=== PATIENT | male | born 1950 | race African-American/Black ===

== ENCOUNTER 2021-11-28 07:15 | Emergency (ER) | payer MEDICARE, OTHER ==
[2021-11-28 08:36] LABS: ALT (SGPT) 24 U/L (8-55); AST (SGOT) 28 U/L (5-34); Albumin 3.1 g/dL (3.4-4.8); Alkaline Phosphatase 90 U/L (40-110); Anion Gap 15 mmol/L (10-20); BUN (Urea Nitrogen) 35 mg/dL (8.4-25.7); Bilirubin, Total 0.5 mg/dL (0.2-1.2); Calc. Creatinine Clearance 0 mL/min (70-130); Calcium 8.9 mg/dL (7.8-10.44); Carbon Dioxide 25 mmol/L (23-31); Chloride 102 mmol/L (98-107); Glucose 159 mg/dL (83-110); Lipase 93 U/L (8-78); Magnesium 2.6 mg/dL (1.6-2.6); Potassium 5.3 mmol/L (3.5-5.1); Protein, Total 7.1 g/dL (5.8-8.1); Sodium 137 mmol/L (136-145)
[2021-11-28 08:57] LABS: #Eosinphils 1.3 10x3/uL (0.0-0.5); #Monocytes 0.9 10x3/uL (0.0-1.1); #Neutrophils 3.7 10x3/uL (1.5-8.4); %Basophils 0.6 % (0.0-2.0); %Eosinophils 18.2 % (0.0-6.0); %Lymphocytes 16.4 % (18.0-47.0); %Monocytes 13.2 % (0.0-10.0); %Neutrophils 51.2 % (40.0-75.0); Hemoglobin 7.8 g/dL (13.5-17.5); Mean Corpuscular HGB CONC 31.8 g/dL (32.0-36.0); Mean Corpuscular Hemoglobin 32.2 pg (27.0-33.0); Mean Corpuscular Volume 101.2 fl (81.2-95.1); Mean Platelet Volume 10.1 fl (7.4-10.4); Platelet Count 127 10x3/uL (150-450); RBC Distribution Width 14.4 % (11.5-14.5); Red Blood Cell (RBC) Count 2.42 10x6/uL (4.32-5.72); White Blood Cell (WBC) Count 7.1 10x3/uL (3.5-10.5)
[2021-11-28] MEDS ORDERED: Ketorolac Tromethamine 30 MG/ML VIAL ONE (10:22)
[2021-11-28 10:35] LABS: SARS-CoV-2 NAA Rapid Test Not Detected (NotDetected)
[2021-11-28 10:38] LABS: Bilirubin Neg (Negative); Clarity Bloody (Clear); Glucose, Urine (Dipstick) 50 mg/dL (Negative); Nitrite Negative (Negative); Protein, Urine (Dipstick) 500 mg/dl (Neg-Trace); Specific Gravity, Urine 1.015 (1.002-1.036); Urobilinogen Normal mg/dL (Less than 2)
[2021-11-28 10:46] LABS: Blood, Urine 150 (Negative); Ketone, Urine Negative (Negative); Leukocyte Negative (Negative)
[2021-11-28 10:51] LABS: Bacteria/HPF Rare-Few HPF (None Seen); RBC/HPF Greater than 50 HPF (0-3); Squamous Epithelial None Seen HPF (0-3)
== END 2021-11-28 12:40 | disposition short-term general hospital (02) ==
LOC: CSHERS 07:15
DX: T86.11 Kidney transplant rejection (principal); R31.9 Hematuria, unspecified; E11.9 Type 2 diabetes mellitus without complications
CPT/HCPCS: 80053; 83690; 83735; 85025; 93005; 96374; 99285; U0002; 36415; 81003; 81015; J1885